=== PATIENT | male | born 2000 | race Caucasian/White ===

== ENCOUNTER 2023-02-01 12:28 | Outpatient (REF) | payer MEDICAID, SELFPAY ==
[2023-02-01 14:39] LABS: TSH reflex Free T4 3.77 uIU/mL (0.32-4.0)
== END 2023-02-01 12:29 | disposition home or self-care (01) ==
LOC: HO.HHCL 12:28
PROVIDERS: Visit Provider Internal Medicine Geriatric Medicine
DX: E03.8 Other specified hypothyroidism (principal)
CPT/HCPCS: 36415; 84443

== ENCOUNTER 2023-03-21 09:50 | Outpatient (REF) | payer MEDICAID, SELFPAY ==
[2023-03-24 17:23] LABS: TS Negative Control Passed; TS Panel A 0; TS Panel B 0; TS Positive Control Passed; TSpotTB Negative (Negative)
== END 2023-03-21 09:51 | disposition home or self-care (01) ==
LOC: HO.HHCL 09:50
PROVIDERS: Visit Provider Internal Medicine Geriatric Medicine
DX: Z11.1 Encounter for screening for respiratory tuberculosis (principal)
CPT/HCPCS: 36415; 86481

== ENCOUNTER 2023-12-12 10:12 | Outpatient (REF) | payer MEDICAID, SELFPAY ==
[2023-12-12 11:53] LABS: Anion Gap 13 (12-20); Blood Urea Nitrogen 16 mg/dL (9-16); Calcium 9.8 mg/dL (8.4-10.2); Carbon Dioxide 26 mmol/L (22-29); Chloride 107 mmol/L (96-108); Estimated Glomerular Filt Rate > 60; Glucose Random 101 mg/dL (60-115); Sodium 142 mmol/L (135-145)
[2023-12-12 11:58] LABS: TSH reflex Free T4 2.64 uIU/mL (0.32-4.0)
== END 2023-12-12 10:13 | disposition home or self-care (01) ==
LOC: HO.HHCL 10:12
PROVIDERS: Visit Provider Internal Medicine Geriatric Medicine
DX: Z00.00 Encounter for general adult medical examination without abnormal findings (principal); E03.8 Other specified hypothyroidism; E66.09 Other obesity due to excess calories
CPT/HCPCS: 36415; 80048; 84443

== ENCOUNTER → 2024-11-21 22:24 | Outpatient (BNV) | payer MEDICAID, SELFPAY | PROVIDERS: PCP Pediatrics; Visit Provider General Practice | DX: M25.511 Pain in right shoulder (principal) | CPT/HCPCS: 73030 ==

== ENCOUNTER 2024-11-21 22:34 | Emergency (ER) | payer BC, MEDICAID, SELFPAY ==
--- NOTE | ~2024-11-21 | XR_ITS ---
CLINICAL HISTORY: pain after lifting, felt popping 3 view right shoulder Comparison: None Findings: No fractures or dislocations. No significant arthritic change. No erosions. No radiopaque foreign body. IMPRESSION: 1. No acute findings This document has been electronically signed by: Mook Grewal MD, PHD on 11/22/2024 00:27:21
[2024-11-21 23:01] VITALS: BP 130/87; PULSE 90; RESP 16; TEMP 36.7; O2SAT 99; BMI 32.7
[2024-11-22 02:31] VITALS: BP 109/70; PULSE 70; RESP 16; TEMP 36.6; O2SAT 98
--- NOTE | 2024-11-22 03:37 | ED_ITS ---
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 Patient states he has a [employer] employee, he was lifting a heavy bag of linen yesterday and subsequently dislocated the right shoulder. patient was able to pop it back into place . Patient now having pain and swelling. Related Data Previous Rx's ?Medication ?Instructions ?Recorded meloxicam 15 mg tablet 15 mg PO DAILY #7 tabs 11/22/24 methocarbamol 750 mg tablet 1,500 mg (2 x 750 mg) PO Q12H PRN 11/22/24 pain, moderate #14 tabs Allergies Allergy/AdvReac Type Severity Reaction Status Date / Time No Known Allergies Allergy Verified 11/21/24 23:04 Review of Systems Review of Systems: Yes all other systems are reviewed and are negative Constitutional: Constitutional: Denies fatigue and Denies fever(s) Musculoskeletal: Musculoskeletal: Reports arthralgias and Reports joint swelling Endocrine: Endocrine: Denies fatigue PMFSH Past Medical History Attestation statement: The following information was validated with the patient. Social History Social History Advance Directives: No Advance Directives Information Provided: No Do you have a plan to hurt others: No Plan Physical Exam Vital Signs: Vital Signs: Last Vital Signs Temp 97.8 F 11/22/24 02:31 Pulse 70 11/22/24 02:31 Resp 16 11/22/24 02:31 BP 109/70 11/22/24 02:31 Pulse Ox 98 11/22/24 02:31 O2 Del Method Room Air 11/22/24 02:31 BMI result Body Mass Index 32.7 Const: Other: Alert well-appearing Orientation/consciousness: patient oriented x3 Resp: Effort & Inspection: normal respiratory effort Cardio: Other: normal peripheral perfusion Skin: Other: warm dry no rash Neuro: General: patient oriented x3, gait normal, no focal motor deficits and CN's II-XI intact bilaterally Extrem: Other: patient able to fully range the right shoulder, subtle swelling Psych: Other: , cooperative cooperative Medical Decision Making Medical Decision Making MDM Narrative: 24-year-old male presents with right shoulder pain. Patient states he has a [employer] employee, he was lifting a heavy bag of linen yesterday and subsequently dislocated the right shoulder. patient was able to pop it back into place . Patient now having pain and swelling. problem: Recent dislocation History: Per patient I have considered the following differential diagnoses: Musculoskeletal strain, fracture, dislocation, sprain Plan: Patient was here to verify there was no injury sustained with the his dislocation, x-ray obtained from triage. We will place him in a sling, send with anti-inflammatory and pain medication, he needs a work note, he should follow up with the orthopedic service. I have independently reviewed the following tests: X-ray right shoulder:Comparison: None Findings: No fractures or dislocations. No significant arthritic change. No erosions. No radiopaque foreign body. IMPRESSION: 1. No acute findings Discharge Plan Discharge Clinical Impression: Sprain of right shoulder, Dislocated shoulder Patient Disposition: Home, Self-Care Instructions: Shoulder Dislocation (ED), Shoulder Sprain (ED) Additional Instructions: the x-ray was normal of the shoulder. Use the sling to help support the joint. Several times a day, released the arm from the sling and allowed to hang at your side rotating in the cervical, this will help prevent frozen shoulder. Use the meloxicam as directed this is an anti-inflammatory take it with food. Use the methocarbamol as needed for further pain, this is a muscle relaxant, it will cause drowsiness, do not drive or operate machinery while taking the medication. I am providing you with our orthopedic contact. Call to make an appointment. Prescriptions: New meloxicam 15 mg tablet 15 mg PO DAILY Qty: 7 0RF methocarbamol 750 mg tablet 1,500 mg PO Q12H PRN (Reason: pain, moderate) Qty: 14 0RF Referrals: Josiah Bustillo MD [Physician] - (right shoulder dislocation) Stand Alone Forms: Work/School Release Print Language: Slovenian
[2024-11-22] MEDS: methocarbamoL 750 MG TABLET 1500 MG PO (03:50)
[2024-11-22] MEDS: Ketorolac Tromethamine 15 MG/ML VIAL IM (03:50)
[2024-11-22 04:02] VITALS: BP 109/70; PULSE 70; RESP 16; TEMP 36.6; O2SAT 98
== END 2024-11-22 04:03 | disposition home or self-care (01) ==
PROVIDERS: Emergency Provider Internal Medicine; PCP Pediatrics
DX: S43.401A Unspecified sprain of right shoulder joint, initial encounter (principal); S43.004A Unspecified dislocation of right shoulder joint, initial encounter; X50.0XXA Overexertion from strenuous movement or load, initial encounter; X50.9XXA Other and unspecified overexertion or strenuous movements or postures, initial encounter; Y93.9 Activity, unspecified; Y92.239 Unspecified place in hospital as the place of occurrence of the external cause; Y99.0 Civilian activity done for income or pay; M25.511 Pain in right shoulder
CPT/HCPCS: 73030; 96372; 99284; J1885

== ENCOUNTER 2024-12-16 09:16 | Outpatient (AMB) | payer BC, MEDICAID, SELFPAY ==
--- NOTE | 2024-12-16 09:21 | MHC.OFFVIS ---
Vital Signs 12/16/24 09:27 Height 5 ft 5 in Weight 196 lb BMI 32.6 Intake Visit Reasons: ED- Sprain of right shoulder, Dislocated shoulder Intake Note: Rashawn is a 24 year old right hand dominant male who presents for an ER follow up of a workers comp injury to his right shoulder, DOI 11/21/24. Patient was seen at [facility] the following day after he had lifted a heavy bag of linen and had felt his shoulder dislocate and pop back into place upon dropping the linen bag. X-rays were obtained, he was placed in a shoulder sling and referred to orthopedics. Today patient reports that he is doing well, stating his pain has improved. States no limitations on his ROM. He continues to work with no restrictions. Allergies No Known Allergies Allergy (Verified 12/16/24 09:24) Medication List - Last Reconciled 12/16/24 by Alma Kirby PA-C No Known Home Meds HPI HPI ED- Sprain of right shoulder, Dislocated shoulder: Details: 24 yo male presents to the office today for an injury to the right shoulder . He states on or around 11/21/24 he was lifting a heavy bag of linen and he felt a pop in his shoulder and his arm was in a weird positon and then it went back to normal. He immediately felt pain and numbness which resolved after the shoulder reduced . He denies prior incident. He states since the incident he denies feeling of instability or pain with motion. He states he has been working without limitations. [facility] Social History (Updated 12/16/24 @ 09:24 by Luz Elena William Marli) Patient Tobacco Use Status: Never used Tobacco Current occupation: Environmental services, right hand dominant Review of Systems Const All systems reviewed & are unremarkable except as noted in HPI and below Physical Exam Vital Signs: BMI result Body Mass Index 32.6 Const General: cooperative and no acute distress Orientation/consciousness: patient oriented x3 Resp Effort & Inspection: normal respiratory effort and able to speak in complete sentences Cardio Peripheral pulses: Peripheral pulses 2+ throughout Neuro General: patient oriented x3 Extrem Other: Rt shoulder full ROM in all planes. Neg Garay's. Neg sulcus and apprehension . NVI. Results Reviewed Results Reviewed: Rt shoulder 11/22/24 IMPRESSION: 1. No acute findings Assessment & Plan Assessment & Plan (1) Shoulder subluxation, right: Code(s): S43.001A - Unspecified subluxation of right shoulder joint, initial encounter Category: Medical Plan: Patient is doing well status post injury. I did offer him a course of physical therapy to work on strengthening and stabilizing techniques which she declined at this time. I reassured he can increase activities as tolerated and if symptoms arise or there is any concerns in contact our office otherwise follow up as needed. Medications: Discontinued meloxicam Discontinued Reason: Patient no longer taking 15 mg PO DAILY 7 tabs 0RF methocarbamol Discontinued Reason: Patient no longer taking 1,500 mg (2 x 750 mg) PO Q12H PRN 14 tabs 0RF pain, moderate Coding Level of Care Code New Pt Level 3 (79575) Complex EM visit Add On G2211 Diagnoses Shoulder subluxation, right S43.001A
[2024-12-16 09:27] VITALS: BMI 32.6
--- OUTSIDE RECORDS SUMMARY | 2024-12-16 09:50 | XMS_ITS | Clinical Summary ---
Author Organization [employer] Address [address] [place] [address] 7 [place] [address] Care Team Providers Care Physician Advisor Name Role Phone Name, Francis LOPEZ Primary Care Provider [phone] Allergies No known active allergies Medications No known medications Active Problems Problem Noted Date Diagnosed Date Chronic idiopathic constipation 01/25/2023 Subclinical hypothyroidism 11/29/2022 Obesity 09/11/2022 Allergic rhinitis 04/17/2018 Resolved Problems Problem Noted Date Diagnosed Date Resolved Date Gastritis 04/17/2018 12/12/2023 Encounters Date Type Department Care Team Description 11/21/2024 Orders Only [facility] External Provider, [facility] from Last 3 Months Immunizations Immunization Administration Dates Next Due DTaP 05/04/2006, 4,2002,07/01,2002 HPV 9-Valent 01/29/2014 HPV, Unspecified 01/04/2016 Hep A, ped/adol, 2 dose 10/15/2018,04/17/2018 Hep B, Adolescent or Pediatric 2002,2002,2002 HiB, unspecified 06/30/2003,2002, 3 Hib (PRP-T) 2002 IPV 03/30/2006, 3,2002,04/29 Influenza Injectable Quadriv alant Preservative Free IIV4 MDCK 05/02/2022 Influenza injectable quadriv alent preservative free 04/17/2018,07/19/2017 MMR 03/30/2006,03/27/2003 Meningococcal MCV4P ACYW-135 04/17/2018,11/21/19 14 Pneumococcal Conjugate PCV 13 2002, 003,2002 Tdap 12/12/2023,11/20/2013 Varicella 11/20/2013,03/27/2003 Family History Medical History Relation Name Comments Diabetes Paternal Grandmother Relation Name Status Comments Paternal Grandmother Social History Tobacco Use Types Packs/Day Years Used Date Smoking Tobacco: Never Smokeless Tobacco: Never Tobacco Cessation:Counseling Given: Not Answered Alcohol Use Standard Drinks/Week Comments Never 0 (1 standard drink = 0.6 oz pur e alcohol) Depression Answer Date Recorded Patient Health Questionnaire-9 Score 0 12/12/2023 Patient Health Questionnaire-9 Score 0 12/12/2023 Last PHQ-9: Questionnaire Data Not on file 0 12/12/2023 Housing Stability Answer Date Recorded What is your housing situation today? I have myranda kim 12/04/[address] you li ve. Do you have problems with any of the following? None of the above 12/04/2023 Food Insecurity Answer Date Recorded Within the past 12 months, y ou worried that your food would run out before you got money to buy more: Never True 12/04/2023 Within the past 12 months,th e food you bought just didn't last and you didn't have enough money to get more: Never True Transportation Answer Date Recorded In the past 12 months, has l ack of transportation kept you from medical appts, meetings, work or from getting things needed for daily living? No 12/04/2023 Utilities Answer Date Recorded In the past 12 months, has t he electric, gas, oil or water company threatened to shut off services in your home? 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 on file Not on file Not on file Last Filed Vital Signs Vital Sign Reading Time Taken Comments Blood Pressure 116/80 12/12/2023 8:57 AM EDT Pulse 85 12/12/2023 8:57 AM EDT Temperature 36.1 C (96.9 F) 12/12/2023 8:57 AM EDT Respiratory Rate 18 12/12/2023 8:57 AM EDT Oxygen Saturation 98% 12/12/2023 8:57 AM EDT Inhaled Oxygen Concentration - - Weight 105 kg (232 lb 3.2 oz) 12/12/2023 8:57 AM EDT Height 165.1 cm (5' 5 ) 12/12/2023 8:57 AM EDT Body Mass Index 38.64 12/12/2023 8:57 AM EDT Plan of Treatment Upcoming Encounters Date Type Department Care Team (Late st Contact Info) Description 12/24/2024 10:00 AM EDT Office Visit [facility] [address] [place] [id number] Name, MD Francis [address] [place] [address] Health Maintenance Due Date Last Done Comments Chlamydia and Gonorrhea Screening 2002 HIV Screening 2002 Disability Screening 2002 Alcohol/Substance Use Screening 2014 Family Planning (PISQ) 2017 Meningococcal B Vaccine (1 of 2 - Standard) 2018 Hepatitis C Screening 02/26/2020 COVID-19 Vaccine ( season) 2024 06/15/2021, 11/03/2020, 10/06/2020 SDOH Screening 12/03/2024 12/04/2023 Depression Screening 12/11/2024 12/12/2023, 12/12/19 24 Tobacco Screening 12/11/2024 12/12/2023 Influenza Vaccine (Season Ended) 2025 05/02/2022, 04/17/2018, 07/19/2017 Lipid Panel 11/29/2027 11/28/2022, 06/15/2021 DTaP/Tdap/Td Vaccines (8 - Td or Tdap) 12/11/2033 12/12/2023, 11/20/2013, 05/04/2006, Additional history exists Zoster Vaccines (1 of 2) 02/26/2052 RSV Patients and Patients Aged 60 years or older (1 - 1-dose 75+ series) 2077 Hepatitis B Vaccines Completed 2002, 2002, 2002 Pneumococcal Vaccine: Pediatrics (0 to 5 Years) and At-Risk Patients (6 to 49) Years Aged Out 2002, 2002, 2002 No longer eligible based on patient's age to complete this topic HIB Vaccines Completed 06/30/2003, 08/16, 2002, Additional history exists IPV Vaccines Completed 03/30/2006, 08/16, 2002, Additional history exists HPV Vaccines Completed 01/04/2016, 01/29/2014 Meningococcal Vaccine Completed 04/17/2018, 014 Hepatitis A Vaccines Completed 10/15/2018, 04/17/20 18 RSV under 20 months Aged Out No longe r eligible based on patient's age to complete this topic Rotavirus Vaccines Aged Out No longer eligible based on patient's age to complete this topic Procedures Procedure Name Priority Date/Time Associated Diagnosis Comments XR SHOULDER 2+ VIEWS RIGHT Routine 11/22/2024 12:27 AM EDT LIPID PANEL, STANDARD Routine 11/28/2022 10:01 AM EDT PE (physical exam), annual Screening for diabetes mellitus Screening for cholesterol level from Last 3 Months or Most Recently Relevant to Health Maintenance Results * XR Shoulder 2+ Views Right (11/22/2024 12:27 AM EDT) Anatomical Region Laterality Modality Upper Extremities, Shoulder Right Radi ographic Imaging 11/22/2024 12:2 7 AM EDT Narrative 11/22/2024 12:29 AM EDT [address] [address] XRay Report Signed Patient: Brock Hernandez MR# : [id number] : 2000 Acct:[id number] Age/Sex: 24 / M ADM Date: 11/21/24 Loc: HO.ED Attending Dr: Ordering Physician: Generic ED Physician Date of Service: 11/21/24 Procedure(s): XR shoulder RT min 2V Accession Number(s): [id number] cc: Kathy Gallardo MD; Generic ED Physician CLINICAL HISTORY: pain after lifting, felt popping 3 view right shoulder Comparison: None Findings: No fractures or dislocations. No significant arthritic change. No erosions. No radiopaque foreign body. IMPRESSION: 1. No acute findings This document has been electronically signed by: Mook Grewal MD, PHD on 11/22/2024 00:27:21 Dictated By: Mook Grewal MD Signed By: <Electronically signed by Mook Grewal MD in OV> 11/22/2427 DD/ TD/TT: 11/22/2426 Rug Repairer: Procedure Note Donotuseinterpreter, Image - 11/22/2024 [place] [address] XRay Report Signed Patient: Brock Hernandez OMR# : [id number] : 2000Acct:[id number] Age/Sex: 24 / MADM Date: 11/21/24 Loc: HO.ED Attending Dr: Ordering Physician: Generic ED Physician Date of Service: 11/21/24 Procedure(s): XR shoulder RT min 2V Accession Number(s): [id number] cc: Kathy Gallardo MD; Generic ED Physician CLINICAL HISTORY: pain after lifting, felt popping 3 view right shoulder Comparison: None Findings: No fractures or dislocations. No significant arthritic change. No erosions. No radiopaque foreign body. IMPRESSION: 1. No acute findings This document has been electronically signed by: Mook Grewal MD, PHD on 11/22/2024 00:27:21 Dictated By: Mook Grewal MD Signed By: <Electronically signed by Mook Grewal MD in OV> 11/22/2427 DD/ TD/TT: 11/22/24 0027 Rug Repairer: [facility] External Provider IMG XR PROCEDURES Edited Result - Final * (ABNORMAL) Lipid Panel, Standard (11/28/2022 10:01 AM EDT) Cholesterol, Total 223(H) <200 mg/dL [facility] HDL Cholesterol 40 > OR = 40 mg/dL [facility] Triglycerides 138 <150 mg/dL [facility] LDL Cholesterol 156(H) mg/dL (calc) [facility] Comment: Reference range: <100 Desirable range <100 mg/dL for primary prevention; <70 mg/dL for patients with CHD or diabetic patients with > or = 2 CHD risk factors. LDL-C is now calculated using the Kevin calculation, which is a validated novel method providing better accuracy than the Friedewald equation in the estimation of LDL-C. Km SS et al. SANDIP. 2013;310(19): 2921-1743 (http://education.Nopsec/faq/VOF411) Chol/HDLC Ratio 5.6(H) <5.0 (calc) [facility] Non-HDL Cholesterol 183(H) <130 mg/dL (calc) [facility] Comment: For patients with diabetes plus 1 major ASCVD risk factor, treating to a non-HDL-C goal of <100 mg/dL (LDL-C of <70 mg/dL) is considered a therapeutic option. Blood Venous blood specimen / Unknown 11/28/2022 10:01 AM EDT 11/28/2022 10:02 AM EDT Narrative [facility] - 11/28/2022 9:33 PM EDT FASTING:YES FASTING: YES Francis Rollins MD LAB BLOOD ORDERABLES Final Resul t [facility] [address], [place] [address] [facility] [address] [place] [address] from Last 3 Months or Most Recently Relevant to Health Maintenance Insurance C3 Care Teams Physician Advisor Relationship Specialty Start Date End Date Name, MD Francis [address] [place] [id number] PCP - General Family Medicine 01/27/21
== END 2024-12-16 10:05 | disposition home or self-care (01) ==
LOC: HO.HOS 09:16
PROVIDERS: PCP Pediatrics; Visit Provider Physician Assistant
DX: S43.001A Unspecified subluxation of right shoulder joint, initial encounter (principal)
CPT/HCPCS: 99203

== ENCOUNTER 2024-12-24 11:08 | Outpatient (REF) | payer BC, MEDICAID, SELFPAY ==
[2024-12-24 12:09] LABS: MANUAL DIFF FLAG NO
[2024-12-24 12:13] LABS: Hematocrit 43.4 % (42.0-52.0); Hemoglobin 15.2 g/dl (14.0-18.0); Imm Gran Abs Auto 0.03 X10*3/uL (0.00-0.03); Imm Gran Pct Auto 0.5 % (0.0-0.4); Lymphocytes Absolute Auto 2.2 X10*3/uL (1.2-4.9); Mean Corpuscular HGB Conc 35.0 g/dl (31.0-36.0); Mean Corpuscular Hemoglobin 32.7 pg (27.0-33.0); Mean Corpuscular Volume 93.3 fL (80.0-98.0); NRBC Abs Auto 0.000 X10*3/uL (0.0-0.012); NRBC Pct Auto 0.0 /100WBC (0.0-0.2); Platelet Count 334 X10*3/uL (160-400); Red Blood Count 4.65 X10*6/uL (4.60-5.80); White Blood Count 6.6 X10*3/uL (4.8-10.8)
--- OUTSIDE RECORDS SUMMARY | 2024-12-24 12:23 | XMS_ITS | Clinical Summary ---
Author Organization [employer] Address [address] [place] [address] 7 [place] [address] Care Team Providers Care Risk Control Manager Name Role Phone NameFrancis MD Primary Care Provider [phone] Allergies No known active allergies Medications No known medications Active Problems Problem Noted Date Diagnosed Date Chronic idiopathic constipation 01/25/2023 Subclinical hypothyroidism 11/29/2022 Obesity 09/11/2022 Allergic rhinitis 04/17/2018 Resolved Problems Problem Noted Date Diagnosed Date Resolved Date Gastritis 04/17/2018 12/12/2023 Encounters Date Type Department Care Team Description 12/24/2024 10:00 AM EDT Office Visit [facility] [address] [place] [phone] Francis Rollins MD PE (physical exam), routine (Primary Dx); Screening for diabetes mellitus; Screening for cholesterol level; TSH elevation 12/24/2024 Travel 12/23/2024 Telephone [facility] [address] [place] [address] Francis Rollins MD CHART PREP 12/16/2024 Patient Outreach [facility] [address] [place], [place] [id number] Francis Rollins MD Pre-visit Planning (SDOH negative, Tobacco screening negative. ) 11/21/2024 Orders Only [facility] External Provider, [facility] from Last 3 Months Immunizations Immunization [...] Diabetes Paternal Grandmother Relation Name Status Comments Brother Alive Father Alive Mother Alive Paternal Grandmother Sister 1 Alive Sister 2 Alive Social History Tobacco Use Types Packs/Day Years Used Date Smoking Tobacco: Never Smokeless Tobacco: Never Tobacco Cessation:Counseling Given: Not Answered Alcohol Use Standard Drinks/Week Comments Never 0 (1 standard drink = 0.6 oz pur e alcohol) Depression Answer Date Recorded Patient Health Questionnaire-9 Score 2 12/24/2024 Patient Health Questionnaire-9 Score 2 12/24/2024 Last PHQ-9: Questionnaire Data Not on file 0 12/24/2024 Housing Stability Answer Date Recorded What is your housing situation today? I have myranda kim 12/16/[address] you li ve. Do you have problems with any of the following? None of the above 12/16/2024 Food Insecurity Answer Date Recorded Within the past 12 months, y ou worried that your food would run out before you got money to buy more: Never True 12/16/2024 Within the past 12 months,th e food you bought just didn't last and you didn't have enough money to get more: Never True 06/2024 Transportation Answer Date Recorded In the past 12 months, has l ack of transportation kept you from medical appts, meetings, work or from getting things needed for daily living? No 12/16/2024 Utilities Answer Date Recorded In the past 12 months, has t he electric, gas, oil or water company threatened to shut off services in your home? 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 Not on file Not on file [employer]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 Not on file Not on file Last Filed Vital Signs Vital Sign Reading Time Taken Comments Blood Pressure 124/82 12/24/2024 10:21 AM EDT Pulse 65 12/24/2024 10:21 AM EDT Temperature 36.2 C (97.1 F) 12/24/2024 10:21 AM EDT Respiratory Rate 18 12/24/2024 10:21 AM EDT Oxygen Saturation 98% 12/24/2024 10:21 AM EDT Inhaled Oxygen Concentration - - Weight 89.8 kg (198 lb) 12/24/2024 10:21 AM EDT Height 165.1 cm (5' 5 ) 12/24/2024 10:21 AM EDT Body Mass Index 32.95 12/24/2024 10:21 AM EDT Plan of Treatment Health Maintenance Due Date Last Done Comments Chlamydia and Gonorrhea Screening 2002 HIV Screening 2002 Family Planning (PISQ) 2017 Meningococcal B Vaccine (1 of 2 - Standard) 2018 Hepatitis C Screening 02/26/2020 COVID-19 Vaccine ( season) 2024 06/15/2021, 11/03/2020, 10/06/2020 Influenza Vaccine (#1) 2025 , 04/17/2018, 07/19/2017 SDOH Screening 12/16/2025 12/16/2024 Alcohol/Substance Use Screening 12/24/2025 12/24/2024 Depression Screening 12/24/2025 12/24/2024, 12/25/19 25 Disability Screening 12/24/2025 12/24/2024 Tobacco Screening 12/24/2025 12/24/2024 Lipid Panel 11/29/2027 11/28/2022, 06/15/2021 DTaP/Tdap/Td Vaccines [...] Procedure Name Priority Date/Time Associated Diagnosis Comments CBC WITH AUTO DIFFERENTIAL Routine 12/24/2024 11:29 AM EDT PE (physical exam), routine Screening for diabetes mellitus Screening for cholesterol level TSH elevation XR SHOULDER 2+ VIEWS RIGHT Routine 11/22/2024 12:27 AM EDT LIPID PANEL, STANDARD Routine 11/28/2022 10:01 AM EDT PE (physical exam), annual Screening for diabetes mellitus Screening for cholesterol level from Last 3 Months or Most Recently Relevant to Health Maintenance Results * (ABNORMAL) CBC auto differential (12/24/2024 11:29 AM EDT) White Blood Count 6.6 4.8 - 10.8 X10*3/uL [facility] Red Blood Count 4.65 4.60 - 5.80 X10*6/uL [facility] Hemoglobin 15.2 14.0 - 18.0 g/dl [facility] Hematocrit 43.4 42.0 - 52.0 % [facility] Mean Corpuscular Volume 93.3 80.0 - 98.0 fL [facility] Mean Corpuscular Hemoglobin 32.7 27.0 - 33.0 pg [facility] Mean Corpuscular HGB Conc 35.0 31.0 - 36.0 g/dl [facility] Red Cell Distribution Width 12.1 11.0 - 16.0 % [facility] Platelet Count 334 160 - 400 X10*3/uL [facility] Mean Platelet Volume 9.2(L) 9.4 - 12.4 fL [facility] Neutrophils Percent Auto 53.7 45 - 73 % [facility] Imm Gran Pct Auto 0.5(H) 0.0 - 0.4 % [facility] Lymphocytes Percent Auto 33.6 20 - 40 % [facility] Monocytes Percent Auto 9.1 2 - 11 % [facility] Eosinophils Percent Auto 2.3 0 - 4 % [facility] Basophils Percent Auto 0.8 0 - 2 % [facility] NRBC Pct Auto 0.0 0.0 - 0.2 /100WBC [facility] Neutrophils Absolute Auto 3.5 2.0 - 8.3 x10*3/uL [facility] Imm Gran Abs Auto 0.03 0.00 - 0.03 X10*3/uL [facility] Lymphocytes Absolute Auto 2.2 1.2 - 4.9 X10*3/uL [facility] Monocytes Absolute Auto 0.6 0.1 - 1.2 X10*3/uL [facility] Eosinophils Absolute Auto 0.2 0.0 - 0.4 X10*3/uL [facility] Basophils Absolute Auto 0.1 0.0 - 0.2 X10*3/uL [facility] NRBC Abs Auto 0.000 0.0 - 0.012 X10*3/uL [facility] Blood Venous blood specimen / Unknown 12/24/2024 11:29 AM EDT 12/24/2024 12:00 PM EDT us Francis Name MD LAB BLOOD ORDERABLES Final Resul t Performing Organization Address City/State/[facility] Co de Phone Number [facility] [address] [place] [phone] * XR Shoulder 2+ Views Right (11/22/2024 12:27 AM EDT) Anatomical Region Laterality Modality Upper Extremities, Shoulder Right Radi ographic Imaging 11/22/2024 12:2 7 AM EDT Narrative 11/22/2024 12:29 AM EDT [address] [address] XRay Report Signed Patient: Brock Hernandez MR# : [id number] : 2000 Acct:[id number] Age/Sex: 24 / M ADM Date: 11/21/24 Loc: HO.ED Attending Dr: Ordering Physician: Generic ED Physician Date of Service: 11/21/24 Procedure(s): XR shoulder RT min 2V Accession Number(s): [id number] cc: Kathy Gallardo MD; Generic ED Physician [...] MD in OV> 11/22/2427 DD/ TD/TT: 11/22/2426 Phone Specialist: Procedure Note Marie, Benjamin - 11/22/2024 [place] [address] XRay Report Signed Patient: Brock Hernandez OMR# : [id number] : 2000Acct:[id number] Age/Sex: 24 / MADM Date: 11/21/24 Loc: HO.ED Attending Dr: Ordering Physician: Generic ED Physician Date of Service: 11/21/24 Procedure(s): XR shoulder RT min 2V Accession Number(s): [id number] cc: Kathy Gallardo MD; Generic ED Physician [...] MD in OV> 11/22/2427 DD/ TD/TT: 11/22/2426 Phone Specialist: [facility] External Provider IMG XR PROCEDURES Edited Result - Final * (ABNORMAL) Lipid Panel, Standard (11/28/2022 10:01 AM EDT) Cholesterol, Total 223(H) <200 mg/dL [facility] HDL Cholesterol 40 > OR = 40 mg/dL [facility] Triglycerides 138 <150 mg/dL [facility] LDL Cholesterol 156(H) mg/dL (calc) [facility] Comment: Reference range: <100 Desirable range <100 mg/dL for primary prevention; <70 mg/dL for patients with CHD or diabetic patients with > or = 2 CHD risk factors. LDL-C is now calculated using the Kevin calculation, which is a validated novel method providing better accuracy than the Friedewald equation in the estimation of LDL-C. Km HERMAN et al. SADNIP. 2013;310(19): 0490-2814 (http://education.[employer]/faq/DMZ092) Chol/HDLC Ratio 5.6(H) <5.0 (calc) [facility] Non-HDL Cholesterol 183(H) <130 mg/dL (calc) [facility] Comment: For patients with diabetes plus 1 major ASCVD risk factor, treating to a non-HDL-C goal of <100 mg/dL (LDL-C of <70 mg/dL) is considered a therapeutic option. Blood Venous blood specimen / Unknown 11/28/2022 10:01 AM EDT 11/28/2022 10:02 AM EDT Narrative [facility] - 11/28/2022 9:33 PM EDT FASTING:YES FASTING: YES us Francis Name LAB BLOOD ORDERABLES Final Resul t [facility] [place] [address], [place] [address] [facility] [address] [place] [phone] from Last 3 Months or Most Recently Relevant to Health Maintenance Insurance PPO Care Teams Risk Control Manager Relationship Specialty Start Date End Date Name, MD Francis [address] [place] [phone] PCP - General Family Medicine 01/27/21
[2024-12-24 13:00] LABS: Alanine Aminotransferase 22 U/L (0-40); Albumin Level 4.8 g/dL (3.5-5.0); Alkaline Phosphatase 82 U/L (39-117); Anion Gap 11 (12-20); Aspartate Amino Transferase 28 U/L (5-37); Blood Urea Nitrogen 18 mg/dL (9-16); Calcium 9.8 mg/dL (8.4-10.2); Carbon Dioxide 27 mmol/L (22-29); Chloride 108 mmol/L (96-108); Cholesterol 183 mg/dL (<200); Estimated Glomerular Filt Rate > 60; HDL Cholesterol 39 mg/dL (>40); Potassium 4.7 mmol/L (3.3-5.1); Sodium 141 mmol/L (135-145); Total Protein 7.1 g/dL (6.5-8.0); Triglycerides 66 mg/dL (<150)
== END 2024-12-24 11:09 | disposition home or self-care (01) ==
LOC: HO.HHCL 11:08
PROVIDERS: PCP Internal Medicine Geriatric Medicine; Visit Provider Internal Medicine Geriatric Medicine
DX: Z00.00 Encounter for general adult medical examination without abnormal findings (principal); R79.89 Other specified abnormal findings of blood chemistry; Z13.1 Encounter for screening for diabetes mellitus; Z13.220 Encounter for screening for lipoid disorders
CPT/HCPCS: 36415; 80053; 80061; 84443; 85025

== ENCOUNTER 2025-04-03 10:36 | Outpatient (REF) | payer OTHER, SELFPAY ==
[2025-04-06 10:28] LABS: TS Negative Control Passed; TS Panel A 0; TS Panel B 2; TS Positive Control Passed; TSpotTB Negative (Negative)
== END 2025-04-03 10:37 | disposition home or self-care (01) ==
LOC: HO.HHCL 10:36
PROVIDERS: PCP Internal Medicine Geriatric Medicine; Visit Provider Internal Medicine Geriatric Medicine
DX: Z11.1 Encounter for screening for respiratory tuberculosis (principal)
CPT/HCPCS: 36415; 86481